=== PATIENT | female | born 1950 | race Caucasian/White ===

== ENCOUNTER → 2017-08-31 09:07 | Outpatient (POV) | payer MEDICARE, SELFPAY | PROVIDERS: Visit Provider Physician Assistant | DX: Z00.00 Encounter for general adult medical examination without abnormal findings (principal) ==

== ENCOUNTER → 2017-10-01 08:50 | Outpatient (CLI) | payer MEDICARE, SELFPAY ==
--- NOTE | 2017-10-01 09:32 | MM_ITS ---
MM Dig screening mamm BI w/CAD CAD Screening INDICATION: Screening for breast cancer ORDERING PHYSICIAN: Latoya Orr MD PATIENT AGE: 67 years COMPARISON: 08/14/2015, 06/06/2013, 04/04/2011 TECHNIQUE: Standard CC and MLO images were obtained. R2 CAD reviewed. FINDINGS: There is average to dense fibroglandular tissue which decreases the sensitivity of mammography. There is asymmetric density in the superior aspect of the right breast. This may be due to overlapping fibroglandular tissue. Spot compression view is suggested. If this persists then ultrasound may be needed. Asymmetric density also noted in the superior and lateral and retroareolar region of the left breast. No malignant appearing microcalcifications.. IMPRESSION: Scattered asymmetric densities which may be due to overlapping fibroglandular tissue. Spot compression views and possible ultrasound suggested BI-RADS Category: 0 Need Additional Imaging Evaluation RECOMMENDED FOLLOW-UP: IMM - IMMEDIATE FOLLOW-UP RECOMMENDED Suggest bilateral spot compression views and possibly ultrasound if nodular densities persist (A letter has been sent to the patient regarding results of the study.)
--- NOTE | 2017-10-01 09:48 | XR_ITS ---
XR DEXA axial skeleton HISTORY: ITS.REASON: Postmenopausal and Hypothyroidism ORDERING PHYSICIAN: Latoya Orr MD PATIENT AGE: 67 years COMPARISON: None FINDINGS: The BMD measured at the Right femoral neck is 0.752 g/cm squared with a T score of -2.1. This is considered Osteopenic according to the World Health Organization criteria. Fracture risk is Moderate. Treatment is advised. IMPRESSION: Osteopenia with moderate fracture risk. Treatment recommended. Recommend fall exam September 2019
== END ==
PROVIDERS: PCP Internal Medicine; Visit Provider Obstetrics & Gynecology
DX: Z12.31 Encounter for screening mammogram for malignant neoplasm of breast (principal); Z78.0 Asymptomatic menopausal state; Z13.820 Encounter for screening for osteoporosis; E03.9 Hypothyroidism, unspecified
CPT/HCPCS: 77067; 77080

== ENCOUNTER → 2017-10-22 12:54 | Outpatient (CLI) | payer MEDICARE, SELFPAY ==
--- NOTE | 2017-10-22 | US_ITS ---
MM Dig mamm BI DX w/CAD, US breast RT complete, US breast LT complete INDICATION: Follow-up abnormal mammogram ORDERING PHYSICIAN: Latoya Orr MD PATIENT AGE: 67 years COMPARISON: 10/01/2017, 08/14/2015 TECHNIQUE: Problem solving views performed along with bilateral breast ultrasound FINDINGS: Scattered areas of asymmetric density. Compress out as fibroglandular tissue. No malignant appearing mass or malignant appearing calcification Right breast ultrasound: No suspicious solid or cystic lesions. Left breast ultrasound: No suspicious cystic or solid lesions. IMPRESSION: Benign findings. Scattered areas of asymmetric density consistent with asymmetric fibroglandular tissue. BI-RADS Category: 2 Benign Finding(s) RECOMMENDED FOLLOW-UP: 1YR - 1 YEAR FOLLOW-UP (A letter has been sent to the patient regarding results of the study.)
== END ==
PROVIDERS: PCP Internal Medicine; Visit Provider Obstetrics & Gynecology
DX: R92.8 Other abnormal and inconclusive findings on diagnostic imaging of breast (principal)
CPT/HCPCS: 76641; 77066

== ENCOUNTER → 2017-10-28 10:35 | Outpatient (CLI) | payer MEDICARE, SELFPAY ==
--- NOTE | 2017-10-28 10:37 | US_ITS ---
US transvaginal HISTORY: ITS.REASON: T/V US- Abdominal Bloating ORDERING PHYSICIAN: Latoya Orr MD PATIENT AGE: 67 years Comparison: None FINDINGS: There has been prior hysterectomy. The vaginal cuff has an unremarkable appearance. No pelvic mass or abnormal fluid collection. The left ovary is 1.4 x 1.6 cm. The right ovary is 1.4 x 1.2 cm. No ovarian mass apparent. IMPRESSION: Prior hysterectomy otherwise negative pelvic ultrasound
== END ==
PROVIDERS: PCP Internal Medicine; Visit Provider Obstetrics & Gynecology
DX: R14.0 Abdominal distension (gaseous) (principal)
CPT/HCPCS: 76830

== ENCOUNTER → 2017-12-17 08:37 | Outpatient (POV) | payer MEDICARE, SELFPAY | PROVIDERS: Visit Provider Dermatology | DX: Z00.00 Encounter for general adult medical examination without abnormal findings (principal) ==

== ENCOUNTER → 2018-03-19 09:26 | Outpatient (CLI) | payer MEDICARE, SELFPAY | PROVIDERS: PCP Internal Medicine; Visit Provider Internal Medicine | DX: R06.09 Other forms of dyspnea (principal) | CPT/HCPCS: 93017 ==

== ENCOUNTER → 2018-04-26 17:08 | Outpatient (CLI) | payer MEDICARE, SELFPAY ==
[2018-04-26 19:53] LABS: Alanine Aminotransferase 45 U/L (12-78); Albumin Level 4.1 gm/dL (3.4-5.0); Alkaline Phosphatase 75 U/L (46-116); Bilirubin,Direct 0.1 mg/dL (0.0-0.2); Bilirubin,Indirect 0.2 mg/dL (0.0-0.9); Bilirubin,Total 0.3 mg/dL (0.2-1.0); Total Protein,Serum 7.2 gm/dL (6.4-8.2)
[2018-04-26 20:18] LABS: Aspartate Amino Transferase 24 U/L (15-37)
== END ==
PROVIDERS: Visit Provider Internal Medicine
DX: R74.8 Abnormal levels of other serum enzymes (principal)
CPT/HCPCS: 36415; 80076

== ENCOUNTER → 2018-08-10 09:00 | Outpatient (POV) | payer MEDICARE, SELFPAY | PROVIDERS: Visit Provider Dermatology | DX: Z00.00 Encounter for general adult medical examination without abnormal findings (principal) ==

== ENCOUNTER → 2019-04-05 08:33 | Outpatient (POV) | payer MEDICARE, SELFPAY | PROVIDERS: Visit Provider Dermatology | DX: Z00.00 Encounter for general adult medical examination without abnormal findings (principal) ==

== ENCOUNTER → 2019-07-12 14:04 | Outpatient (POV) | payer MEDICARE, SELFPAY | PROVIDERS: PCP Dermatology; Visit Provider Dermatology | DX: Z00.00 Encounter for general adult medical examination without abnormal findings (principal) ==

== ENCOUNTER → 2019-11-22 08:03 | Outpatient (POV) | payer MEDICARE, SELFPAY | PROVIDERS: Visit Provider Dermatology | DX: Z00.00 Encounter for general adult medical examination without abnormal findings (principal) ==

== ENCOUNTER → 2020-02-28 08:12 | Outpatient (CLI) | payer SELFPAY ==
--- NOTE | 2020-02-28 08:31 | CT_ITS ---
PROCEDURE: CT HEART W CALCIUM SCORE CLINICAL HISTORY: SCREENING COMPARISON: CT CHW CT CHEST W/ CONTRAST from 04/10/2017 TECHNIQUE: Axial images obtained with sagittal and coronal reformats. All CT scans at the facility use one or more dose reduction, viz: automated exposure control, ma/kV adjustment per patient size (including targeted exams where dose is matched to indication, i.e. head), or iterative reconstruction technique. FINDINGS: Coronary artery calcium score is 155. Moderate calcific plaque burden with high cardiovascular disease risk Incidental note made of a small hiatal hernia. Calcified granuloma is present in the left upper lobe. Noncalcified nodular opacity is present in the right middle lobe 6 mm. There is an additional 4 mm noncalcified nodule in the right lower lobe. IMPRESSION: Moderate calcific plaque burden with high cardiovascular disease risk At least 2 noncalcified nodules on the right 1 in the middle lobe and 1 in the lower lobe. These are not significantly changed from prior chest CT of 04/10/2017. Dictated by: Sav Arzate MD 02/28/2020 12:58 Sav Arzate MD in [place] 02/28/2020 12:58
== END ==
PROVIDERS: PCP Internal Medicine; Visit Provider Internal Medicine Cardiovascular Disease
DX: Z13.6 Encounter for screening for cardiovascular disorders (principal)
CPT/HCPCS: 75571

== ENCOUNTER → 2020-02-28 08:17 | Outpatient (CLI) | payer MEDICARE, SELFPAY ==
--- NOTE | 2020-02-28 08:29 | CA_ITS ---
APPROVED REPORT Technical Services Assistant: THIAGO Laterality: Bilateral Indications: betty Doppler Spectral Velocity Analysis dICA (R) 99.20/40.30 cm/s dICA (L) 104.20/40.20 cm/s John (R) 94.40/37.50 cm/s John (L) 104.20/36.80 cm/s pICA (R) 86.60/36.60 cm/s pICA (L) 98.40/29.10 cm/s dCCA (R) 93.40/29.70 cm/s dCCA (L) 104.00/31.90 cm/s pCCA (R) 127.30/29.70 cm/s pCCA (L) 81.10/17.90 cm/s Vert (R) 44.40/11.10 cm/s Vert (L) 44.30/15.90 cm/s ICA/CCA 1.10 ICA/CCA 1.00 Findings Duplex evaluation demonstrates stenosis of the right proximal internal carotid artery <20% with PSV <140 cm/sec, EDV <100 cm/sec, and IC/CC Ratio <4.0.Duplex evaluation demonstrates stenosis of the left proximal internal carotid artery <20% with PSV <140 cm/sec, EDV <100 cm/sec, and IC/CC Ratio <4.0.Antegrade flow seen bilateral vertebral arteries. Conclusion Duplex evaluation demonstrates stenosis of the right proximal internal carotid artery <20% with PSV <140 cm/sec, EDV <100 cm/sec, and IC/CC Ratio <4.0.Duplex evaluation demonstrates stenosis of the left proximal internal carotid artery <20% with PSV <140 cm/sec, EDV <100 cm/sec, and IC/CC Ratio <4.0.Antegrade flow seen bilateral vertebral arteries. Electronically signed by : Sav Arzate MD 02/28/2020 17:52:05
--- NOTE | 2020-02-28 08:32 | US_ITS ---
PROCEDURE: US ABD. AORTA SCREENING CLINICAL INDICATION: AAA,DYSPNEA COMPARISON: No exams were available for comparison FINDINGS: No evidence of aortic aneurysm. No significant plaque. Proximal common iliacs are unremarkable. IMPRESSION: No evidence of aortic aneurysm. Dictated by: Sav Arzate MD 02/28/2020 12:50 Sav Arzate MD in [place] 02/28/2020 12:50
== END ==
PROVIDERS: PCP Internal Medicine; Visit Provider Internal Medicine Cardiovascular Disease
DX: R06.00 Dyspnea, unspecified (principal); R42 Dizziness and giddiness; I65.23 Occlusion and stenosis of bilateral carotid arteries; I48.0 Paroxysmal atrial fibrillation; I10 Essential (primary) hypertension; Z82.49 Family history of ischemic heart disease and other diseases of the circulatory system; Z86.39 Personal history of other endocrine, nutritional and metabolic disease; Z87.891 Personal history of nicotine dependence; Z13.6 Encounter for screening for cardiovascular disorders
CPT/HCPCS: 76705; 93880

== ENCOUNTER → 2021-04-16 10:55 | Outpatient (POV) | payer MEDICARE, SELFPAY | PROVIDERS: Visit Provider Dermatology | DX: Z00.00 Encounter for general adult medical examination without abnormal findings (principal) ==

== ENCOUNTER → 2021-07-30 13:24 | Outpatient (CLI) | payer MEDICARE, SELFPAY ==
[2021-07-30 17:13] LABS: 25-OH Vitamin D, Total 65.5 ng/mL (30-100)
[2021-07-30 18:13] LABS: Alanine Aminotransferase 36 U/L (12-78); Albumin Level 4.5 g/dl (3.5-5.0); Alkaline Phosphatase 69 U/L (38-126); Anion Gap 12.6 mEq/L (5-15); Aspartate Amino Transferase 35 U/L (14-36); Bilirubin,Total 0.4 mg/dl (0.2-1.3); Blood Urea Nitrogen 9 mg/dl (7-17); Calcium 9.3 mg/dl (8.4-10.2); Carbon Dioxide 23 mmol/L (22.0-30.0); Chloride 103 mmol/L (98-107); Chol/HDL Ratio 2.7 (1-3.5); Cholesterol 159 mg/dl (140-200); Estimated Glomerular Filt Rate 98 ml/min (>60); GFR (African American) 119 ML/MIN (>60); Globulin 2.2 g/dL (1.3-3.2); Glucose 89 mg/dl (74-100); HDL Cholesterol 59 mg/dl (40-60); Potassium 4.6 mmoL/L (3.5-5.1); Sodium 134 mmol/L (136-145); Total Protein,Serum 6.7 g/dl (6.3-8.2); Triglycerides 83 mg/dl (30-150); VLDL Cholesterol 17 mg/dL (0-40)
[2021-07-30 18:24] LABS: Direct LDL Cholesterol 78.17 mg/dL (100-129)
== END ==
PROVIDERS: Visit Provider Internal Medicine
DX: I10 Essential (primary) hypertension (principal); I47.1 Supraventricular tachycardia; E78.5 Hyperlipidemia, unspecified; N95.1 Menopausal and female climacteric states; M85.89 Other specified disorders of bone density and structure, multiple sites
CPT/HCPCS: 80053; 80061; 82306

== ENCOUNTER → 2021-08-21 13:28 | Outpatient (CLI) | payer MEDICARE, SELFPAY ==
[2021-08-21 16:10] LABS: Anion Gap 11.6 mEq/L (5-15); Blood Urea Nitrogen 8 mg/dl (7-17); Calcium 9.5 mg/dl (8.4-10.2); Carbon Dioxide 31 mmol/L (22.0-30.0); Chloride 100 mmol/L (98-107); Estimated Glomerular Filt Rate 98 ml/min (>60); GFR (African American) 119 ML/MIN (>60); Glucose 84 mg/dl (74-100); Potassium 4.6 mmoL/L (3.5-5.1); Sodium 138 mmol/L (136-145)
== END ==
PROVIDERS: Visit Provider Internal Medicine
DX: I10 Essential (primary) hypertension (principal); I47.1 Supraventricular tachycardia; E87.1 Hypo-osmolality and hyponatremia
CPT/HCPCS: 80048

== ENCOUNTER → 2021-11-05 08:07 | Outpatient (POV) | payer MEDICARE, SELFPAY | PROVIDERS: Visit Provider Dermatology | DX: Z00.00 Encounter for general adult medical examination without abnormal findings (principal) ==

== ENCOUNTER → 2021-12-30 13:27 | Outpatient (CLI) | payer MEDICARE, SELFPAY ==
[2021-12-30 15:59] LABS: Basophils % 0.9 % (0.1-2.0); Eosinophils # 0.1 K/mm3 (0.0-0.4); Eosinophils % 2.8 % (0.1-12.0); Hematocrit 44.8 % (37.0-47.0); Hemoglobin 14.4 g/dL (12.2-16.2); Lymphocytes # 1.5 K/mm3 (0.7-4.5); Lymphocytes % 34.7 % (10-50); Mean Corpuscular HGB Conc 32.1 g/dL (31.8-35.4); Mean Corpuscular Hemoglobin 30.4 pg (27.0-31.2); Mean Corpuscular Volume 94.7 fl (81-99); Mean Platelet Volume 10.7 fl (7.4-10.4); Monocytes # 0.3 K/mm3 (0.1-1.0); Monocytes % 7.9 % (1.7-9.3); Neutrophils # 2.3 K/mm3 (1.8-7.8); Neutrophils % 53.7 % (37.0-80.0); Platelet Count 312 K/mm3 (142-424); Red Blood Count 4.73 M/mm3 (4.20-5.40); White Blood Count 4.3 K/mm3 (4.8-10.8)
[2021-12-30 18:23] LABS: Alanine Aminotransferase 21 U/L (12-78); Albumin Level 4.2 g/dl (3.5-5.0); Albumin/Globulin Ratio 1.8 (1.1-1.8); Alkaline Phosphatase 78 U/L (38-126); Anion Gap 13.9 mEq/L (5-15); Aspartate Amino Transferase 27 U/L (14-36); Bilirubin,Total 0.3 mg/dl (0.2-1.3); Blood Urea Nitrogen 11 mg/dl (7-17); Calcium 9.1 mg/dl (8.4-10.2); Carbon Dioxide 24 mmol/L (22.0-30.0); Chloride 101 mmol/L (98-107); Chol/HDL Ratio 3.1 (1-3.5); Cholesterol 149 mg/dl (140-200); Estimated Glomerular Filt Rate 98 ml/min (>60); GFR (African American) 119 ML/MIN (>60); Globulin 2.3 g/dL (1.3-3.2); Glucose 79 mg/dl (74-100); HDL Cholesterol 48 mg/dl (40-60); Potassium 4.9 mmoL/L (3.5-5.1); Sodium 134 mmol/L (136-145); Total Protein,Serum 6.5 g/dl (6.3-8.2); Triglycerides 79 mg/dl (30-150); VLDL Cholesterol 16 mg/dL (0-40)
[2021-12-30 18:52] LABS: Thyroid Stimulating Hormone 0.98 uIU/mL (0.465-4.68)
[2022-01-01 11:20] LABS: Direct LDL Cholesterol 81 mg/dL (100-129)
== END ==
PROVIDERS: PCP Internal Medicine; Visit Provider Internal Medicine
DX: E03.9 Hypothyroidism, unspecified (principal); I10 Essential (primary) hypertension; E78.5 Hyperlipidemia, unspecified; K59.00 Constipation, unspecified; I65.23 Occlusion and stenosis of bilateral carotid arteries
CPT/HCPCS: 80053; 80061; 84443; 85025

== ENCOUNTER → 2022-01-29 12:32 | Outpatient (CLI) | payer MEDICARE, SELFPAY ==
[2022-01-29 13:24] LABS: Sodium 138 mmol/L (136-145)
== END ==
PROVIDERS: PCP Internal Medicine; Visit Provider Internal Medicine
DX: E87.1 Hypo-osmolality and hyponatremia (principal)
CPT/HCPCS: 84295

== ENCOUNTER → 2022-02-04 20:18 | Outpatient (CLI) | payer MEDICARE, SELFPAY | PROVIDERS: PCP Internal Medicine; Visit Provider Nurse Practitioner Family | DX: G47.33 Obstructive sleep apnea (adult) (pediatric) (principal); I10 Essential (primary) hypertension; I48.91 Unspecified atrial fibrillation | CPT/HCPCS: 95810 ==

== ENCOUNTER → 2022-02-27 12:50 | Outpatient (CLI) | payer MEDICARE, SELFPAY ==
--- NOTE | 2022-02-27 12:51 | CT_ITS ---
FINAL REPORT CLINICAL HISTORY: lung cancer screening, 71-year-old former smoker, quit 9 years ago, 45 pack-year smoking history. COMPARISON: May 23, 2016 FINDINGS: Low-Dose Chest CT Axial images were obtained from the lung apex to the mid abdomen by computed tomography. Low-dose protocol was utilized. CTDI vol (mGy): 2.90 DLP (mGy-cm): 106.29 There is no axillary adenopathy. There is no hilar or mediastinal adenopathy. The heart is proper size. There is no pericardial or pleural effusion. Lung window images demonstrate a calcified granuloma in the anterior left upper lobe. There is a 6 mm nodule in the right middle lobe on image 48 of series 3. There are 3 nodules in the periphery of the right lower lobe measuring up to 4 mm seen on images 50, 53 and 60. There are small nodules in the posterior aspect of the left lower lobe measuring up to 4 mm seen on image 33 of series 3. These nodules are all stable since 2017 and can be considered benign. Limited images of the upper abdomen are unremarkable. IMPRESSION: Stable pulmonary nodules as above. Lung RADS category 2. Recommend 12 month follow-up low-dose chest CT. Reviewed, Interpreted and Dictated by Familia Soliz MD Transcribed by Desiree Harris Authenticated and [facility]
--- NOTE | 2022-02-27 12:51 | MM_ITS ---
PROCEDURE INFORMATION: Exam: MG Bilateral Screening 3D Mammography Exam date and time: 02/27/2022 1:19 PM Age: 71 years old Clinical indication: Screening examination TECHNIQUE: Imaging protocol: Bilateral Screening tomosynthesis and 2D mammography including computer-aided detection (CAD) when performed. COMPARISON: 1. MG DXBI MM Dig mamm BI DX w/CAD 10/22/2017 1:16 PM 2. MG SCBI MM Dig screening mamm BI w/CAD 10/01/2017 9:36 AM FINDINGS: MAMMOGRAPHY: Breast composition: The breasts are heterogeneously dense, which may obscure small masses. Mass: None. Architectural distortion: None. Calcifications: No suspicious calcifications. Asymmetric density: None. Skin thickening: None. Axillary adenopathy: None. IMPRESSION: No mammographic evidence of malignancy. Annual screening is recommended unless otherwise clinically indicated. ASSESSMENT: BI-RADS Category 1: Negative
== END ==
PROVIDERS: PCP Family Medicine; Visit Provider Family Medicine
DX: Z12.31 Encounter for screening mammogram for malignant neoplasm of breast (principal); Z87.891 Personal history of nicotine dependence; Z12.2 Encounter for screening for malignant neoplasm of respiratory organs
CPT/HCPCS: 71271; 77063; 77067

== ENCOUNTER → 2022-03-18 14:25 | Outpatient (CLI) | payer MEDICARE, SELFPAY ==
[2022-03-18 12:32] LABS: Thyroid Stimulating Hormone 1.45 uIU/mL (0.465-4.68)
[2022-03-18 14:29] LABS: Basophils # 0.1 K/mm3 (0-0.2); Basophils % 1.6 % (0.1-2.0); Eosinophils # 0.1 K/mm3 (0.0-0.4); Eosinophils % 1.8 % (0.1-12.0); Hematocrit 44.4 % (37.0-47.0); Hemoglobin 14.6 g/dL (12.2-16.2); Lymphocytes # 1.5 K/mm3 (0.7-4.5); Lymphocytes % 31.3 % (10-50); Mean Corpuscular HGB Conc 32.9 g/dL (31.8-35.4); Mean Corpuscular Hemoglobin 30.8 pg (27.0-31.2); Mean Corpuscular Volume 93.7 fl (81-99); Mean Platelet Volume 10.2 fl (7.4-10.4); Monocytes # 0.3 K/mm3 (0.1-1.0); Monocytes % 6.7 % (1.7-9.3); Neutrophils # 2.8 K/mm3 (1.8-7.8); Neutrophils % 58.5 % (37.0-80.0); Platelet Count 322 K/mm3 (142-424); Red Blood Count 4.74 M/mm3 (4.20-5.40); White Blood Count 4.9 K/mm3 (4.8-10.8)
[2022-03-18 15:07] LABS: Alanine Aminotransferase 19 U/L (12-78); Albumin Level 4.6 g/dl (3.5-5.0); Alkaline Phosphatase 96 U/L (38-126); Anion Gap 17.9 mEq/L (5-15); Aspartate Amino Transferase 27 U/L (14-36); Bilirubin,Total 0.2 mg/dl (0.2-1.3); Blood Urea Nitrogen 12 mg/dl (7-17); Calcium 10.1 mg/dl (8.4-10.2); Carbon Dioxide 27 mmol/L (22.0-30.0); Chloride 101 mmol/L (98-107); Chol/HDL Ratio 2.9 (1-3.5); Cholesterol 164 mg/dl (140-200); Estimated Glomerular Filt Rate 98 ml/min (>60); GFR (African American) 119 ML/MIN (>60); Globulin 2.3 g/dL (1.3-3.2); Glucose 101 mg/dl (74-100); HDL Cholesterol 56 mg/dl (40-60); Magnesium 1.9 mg/dl (1.6-2.3); Potassium 4.9 mmoL/L (3.5-5.1); Sodium 141 mmol/L (136-145); Total Protein,Serum 6.9 g/dl (6.3-8.2); Triglycerides 60 mg/dl (30-150); VLDL Cholesterol 12 mg/dL (0-40)
[2022-03-18 15:17] LABS: Direct LDL Cholesterol 85.05 mg/dL (100-129)
[2022-03-18 15:24] LABS: 25-OH Vitamin D, Total 45.4 ng/mL (30-100)
[2022-03-18 16:13] LABS: Vitamin B12 864 pg/mL (239-931)
[2022-03-18 16:36] LABS: Iron 65 ug/dL (37-170)
[2022-03-18 16:45] LABS: Total Iron Binding Capacity 336 ug/dL (265-497)
== END ==
PROVIDERS: PCP Family Medicine; Visit Provider Family Medicine
DX: E03.9 Hypothyroidism, unspecified (principal); E78.5 Hyperlipidemia, unspecified; I10 Essential (primary) hypertension; R91.8 Other nonspecific abnormal finding of lung field; N95.1 Menopausal and female climacteric states; Z51.81 Encounter for therapeutic drug level monitoring; Z68.20 Body mass index [BMI] 20.0-20.9, adult; Z79.899 Other long term (current) drug therapy
CPT/HCPCS: 80053; 80061; 82306; 82607; 82746; 83540; 83550; 83735; 84443; 85025

== ENCOUNTER → 2022-05-21 14:30 | Outpatient (CLI) | payer MEDICARE, SELFPAY ==
[2022-05-21 15:24] LABS: Adenovirus,PCR Not Detected (NotDetected); Bordetella Pertussis Not Detected (NotDetected); Chlamydophila Pneumoniae, PCR Not Detected (NotDetected); Coronavirus 229E Not Detected (NotDetected); Coronavirus NL63 Not Detected (NotDetected); Coronavirus OC43 Not Detected (NotDetected); Coronovirus HKU1,PCR Not Detected (NotDetected); Human Metapneumovirus Not Detected (NotDetected); Influenza A, PCR Not Detected (NotDetected); Influenza AH1, 2009 Not Detected (NotDetected); Influenza AH1, PCR Not Detected (NotDetected); Influenza AH3,PCR Not Detected (NotDetected); Influenza B, PCR Not Detected (NotDetected); Mycoplasma Pneumoniae, PCR Not Detected (NotDetected); Parainfluenza 1, PCR Not Detected (NotDetected); Parainfluenza 2, PCR Not Detected (NotDetected); Parainfluenza 3, PCR Not Detected (NotDetected); Parainfluenza 4, PCR Not Detected (NotDetected); Respiratory Syncytial Virus Not Detected (NotDetected); Rhinovirus/Enterovirus Not Detected (NotDetected)
[2022-05-22 06:50] LABS: Coronavirus 19, PCR Detected (NotDetected)
== END ==
PROVIDERS: PCP Family Medicine; Visit Provider Family Medicine
DX: U07.1 COVID-19 (principal)
CPT/HCPCS: 87581; 87632; 87798; C9803; U0003; U0005

== ENCOUNTER → 2022-07-15 09:15 | Outpatient (POV) | payer MEDICARE, SELFPAY | PROVIDERS: Visit Provider Dermatology | DX: Z00.00 Encounter for general adult medical examination without abnormal findings (principal) ==

== ENCOUNTER → 2022-09-03 11:22 | Outpatient (CLI) | payer MEDICARE, SELFPAY ==
[2022-09-03 12:05] LABS: Basophils # 0.1 K/mm3 (0-0.2); Basophils % 1.1 % (0.1-2.0); Eosinophils # 0.1 K/mm3 (0.0-0.4); Eosinophils % 1.5 % (0.1-12.0); Hematocrit 44.4 % (37.0-47.0); Hemoglobin 14.6 g/dL (12.2-16.2); Lymphocytes # 1.3 K/mm3 (0.7-4.5); Lymphocytes % 25.7 % (10-50); Mean Corpuscular HGB Conc 32.8 g/dL (31.8-35.4); Mean Corpuscular Hemoglobin 29.1 pg (27.0-31.2); Mean Corpuscular Volume 88.8 fl (81-99); Monocytes # 0.3 K/mm3 (0.1-1.0); Monocytes % 5.8 % (1.7-9.3); Neutrophils # 3.3 K/mm3 (1.8-7.8); Platelet Count 271 K/mm3 (142-424); Red Cell Distribution Width 13.7 % (11.5-17.5)
[2022-09-03 12:41] LABS: Chloride 102 mmol/L (98-107); Potassium 4.2 mmoL/L (3.5-5.1); Sodium 135 mmol/L (136-145)
[2022-09-03 12:44] LABS: Alanine Aminotransferase 27 U/L (12-78); Albumin Level 4.3 g/dl (3.5-5.0); Albumin/Globulin Ratio 1.9 (1.1-1.8); Alkaline Phosphatase 83 U/L (38-126); Anion Gap 9.2 mEq/L (5-15); Aspartate Amino Transferase 30 U/L (14-36); Bilirubin,Total 0.5 mg/dl (0.2-1.3); Blood Urea Nitrogen 15 mg/dl (7-17); Calcium 9.1 mg/dl (8.4-10.2); Carbon Dioxide 28 mmol/L (22.0-30.0); Estimated Glomerular Filt Rate 98 ml/min (>60); GFR (African American) 118 ML/MIN (>60); Globulin 2.3 g/dL (1.3-3.2); Glucose 90 mg/dl (74-100); Total Protein,Serum 6.6 g/dl (6.3-8.2)
[2022-09-03 13:12] LABS: Thyroid Stimulating Hormone 1.19 uIU/mL (0.465-4.68)
[2022-09-03 13:55] LABS: Vitamin B12 738 pg/mL (239-931)
== END ==
PROVIDERS: PCP Family Medicine; Visit Provider Family Medicine
DX: E03.9 Hypothyroidism, unspecified (principal); E07.9 Disorder of thyroid, unspecified; I10 Essential (primary) hypertension
CPT/HCPCS: 36415; 80053; 82607; 84443; 85025

== ENCOUNTER → 2022-10-17 07:55 | Outpatient (CLI) | payer MEDICARE, SELFPAY ==
[2022-10-17 09:30] LABS: Chol/HDL Ratio 2.3 (1-3.5); Cholesterol 148 mg/dl (140-200); HDL Cholesterol 64 mg/dl (40-60); Triglycerides 70 mg/dl (30-150); VLDL Cholesterol 14 mg/dL (0-40)
[2022-10-17 09:42] LABS: Direct LDL Cholesterol 71.86 mg/dL (100-129)
== END ==
PROVIDERS: PCP Nurse Practitioner Family; Visit Provider Nurse Practitioner Family
DX: E78.5 Hyperlipidemia, unspecified (principal)
CPT/HCPCS: 36415; 80061

== ENCOUNTER → 2023-01-06 09:49 | Outpatient (POV) | payer MEDICARE, SELFPAY | PROVIDERS: Visit Provider Dermatology | DX: Z00.00 Encounter for general adult medical examination without abnormal findings (principal) ==

== ENCOUNTER → 2023-04-14 09:11 | Outpatient (CLI) | payer MEDICARE, SELFPAY ==
--- NOTE | 2023-04-14 09:12 | CT_ITS ---
FINAL REPORT CLINICAL HISTORY: . FORMER SMOKER QUIT 14 YEARS AGO, 1/2PPD X40 YEARS COMPARISON: 02/27/2022 FINDINGS: CT CHEST LOW DOSE SCREENING HISTORY: Screening exam for lung cancer. 72-year-old female, former smoker, quit 14 years ago, 20 pack year smoking history DOSE: CTDIvol: 2.9 mGy, DLP: 110.46 mGy*cm COMPARISON: 02/27/2022. TECHNIQUE: Axial CT without IV contrast administration using low dose protocol FINDINGS: No acute lung disease is present . There are scattered nodules in the lung nuno bilaterally, largest in the right lower lobe with the largest in the right middle lobe best seen in image #46. This nodule is stable when compared to the prior CT. The remainder of the nodules seem stable as well. No pleural or pericardial effusion is seen . No adenopathy or mass lesion is present . 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 IMPRESSION: Stable bilateral nodules, largest in the right lower lobe, when compared to the prior CT of February 2022. No new nodules or masses are identified. LUNG RADS CATEGORY 2 RECOMMENDATION: 12 month LDCT follow up Reviewed, Interpreted and Dictated by Sherri Pickering MD Transcribed by Augusta Dowell Authenticated and [facility]
--- NOTE | 2023-04-14 09:12 | XR_ITS ---
FINAL REPORT CLINICAL HISTORY: . post menopausal screening FINDINGS: Using L1-4, the bone mineral density of the spine is 0.931 g/cm2, corresponding to T-score of -1.1. Using the left hip, the bone mineral density of the femoral neck is 0.633 g/cm2, corresponding to a T-score of -1.9. FRAX data: 11% risk for major osteoporotic fracture. Using the right hip, the bone mineral density of the femoral neck is 0.607 g/cm2, corresponding to a T-score of -2.2. FRAX data: 12% risk for major osteoporotic fracture. IMPRESSION: Diminished bone mineral density of the lumbar spine and bilateral hips consistent with osteopenia. Reviewed, Interpreted and Dictated by Sherri Pickering MD Transcribed by Young Jung Authenticated and [facility]
== END ==
PROVIDERS: PCP Internal Medicine; Visit Provider Internal Medicine
DX: Z87.891 Personal history of nicotine dependence (principal); R93.7 Abnormal findings on diagnostic imaging of other parts of musculoskeletal system; Z12.2 Encounter for screening for malignant neoplasm of respiratory organs; Z78.0 Asymptomatic menopausal state
CPT/HCPCS: 71271; 77080

== ENCOUNTER 2023-09-04 12:16 | Outpatient (CLI) | payer MEDICARE, SELFPAY ==
[2023-09-04 12:34] LABS: Basophils # 0.1 K/mm3 (0-0.2); Basophils % 1.2 % (0.1-2.0); Eosinophils # 0.1 K/mm3 (0.0-0.4); Eosinophils % 2.6 % (0.1-12.0); Hematocrit 45.4 % (37.0-47.0); Hemoglobin 15.3 g/dL (12.2-16.2); Lymphocytes # 1.3 K/mm3 (0.7-4.5); Lymphocytes % 27.2 % (10-50); Mean Corpuscular HGB Conc 33.7 g/dL (31.8-35.4); Mean Corpuscular Hemoglobin 31.2 pg (27.0-31.2); Mean Corpuscular Volume 92.7 fl (81-99); Mean Platelet Volume 10.4 fl (7.4-10.4); Monocytes # 0.3 K/mm3 (0.1-1.0); Monocytes % 6.1 % (1.7-9.3); Neutrophils # 2.9 K/mm3 (1.8-7.8); Neutrophils % 62.9 % (37.0-80.0); Platelet Count 266 K/mm3 (142-424); Red Cell Distribution Width 13.6 % (11.5-17.5); White Blood Count 4.6 K/mm3 (4.8-10.8)
[2023-09-04 13:04] LABS: Alanine Aminotransferase 22 U/L (12-78); Albumin Level 4.5 g/dl (3.5-5.0); Alkaline Phosphatase 82 U/L (38-126); Anion Gap 10.8 mEq/L (5-15); Aspartate Amino Transferase 29 U/L (14-36); Bilirubin,Total 0.5 mg/dl (0.2-1.3); Blood Urea Nitrogen 8 mg/dl (7-17); Calcium 9.6 mg/dl (8.4-10.2); Carbon Dioxide 29 mmol/L (22.0-30.0); Chloride 105 mmol/L (98-107); Chol/HDL Ratio 3.7 (1-3.5); Cholesterol 167 mg/dl (140-200); Estimated Glomerular Filt Rate 82 ml/min (>60); GFR (African American) 99 ML/MIN (>60); Globulin 2.2 g/dL (1.3-3.2); Glucose 94 mg/dl (74-100); HDL Cholesterol 45 mg/dl (40-60); Potassium 4.8 mmoL/L (3.5-5.1); Sodium 140 mmol/L (136-145); Total Protein,Serum 6.7 g/dl (6.3-8.2); Triglycerides 53 mg/dl (30-150); VLDL Cholesterol 11 mg/dL (0-40)
[2023-09-04 13:15] LABS: Direct LDL Cholesterol 86.93 mg/dL (100-129)
[2023-09-04 13:21] LABS: Free T4 (Free Thyroxine) 1.37 ng/dl (0.78-2.19)
[2023-09-04 13:22] LABS: 25-OH Vitamin D, Total 42.1 ng/mL (30-100)
[2023-09-04 13:34] LABS: Thyroid Stimulating Hormone 0.65 uIU/mL (0.465-4.68)
[2023-09-04 14:53] LABS: Hemoglobin A1C 5.6 % (4.0-6.0)
== END 2023-09-04 23:59 | disposition home or self-care (01) ==
LOC: LAB.DROPOF 12:18
PROVIDERS: PCP Internal Medicine; Visit Provider Internal Medicine
DX: E55.9 Vitamin D deficiency, unspecified (principal); E03.9 Hypothyroidism, unspecified; E78.5 Hyperlipidemia, unspecified; R73.9 Hyperglycemia, unspecified; Z68.20 Body mass index [BMI] 20.0-20.9, adult; Z13.21 Encounter for screening for nutritional disorder; Z13.29 Encounter for screening for other suspected endocrine disorder; Z13.220 Encounter for screening for lipoid disorders; Z13.1 Encounter for screening for diabetes mellitus
CPT/HCPCS: 80053; 80061; 82306; 83036; 84439; 84443; 85025

== ENCOUNTER 2023-11-18 09:50 | Outpatient (CLI) | payer MEDICARE, SELFPAY ==
--- NOTE | 2023-11-18 09:54 | XR_ITS ---
FINAL REPORT CLINICAL HISTORY: Foot Pain COMPARISON: None FINDINGS: RIGHT FOOT 3 views of the right foot were obtained. There is no acute fracture or dislocation. Mild hallux valgus deformity is noted. There is mild degenerative change. Small calcaneal spurs are noted. The soft tissues are unremarkable. IMPRESSION: Mild degenerative/chronic changes without acute bony abnormality. Small calcaneal spurs. Reviewed, Interpreted and Dictated by Tien Jaramillo III, MD Transcribed by Kami Johnson Authenticated and [facility]
--- NOTE | 2023-11-18 09:54 | XR_ITS ---
FINAL REPORT CLINICAL HISTORY: Foot Pain COMPARISON: None FINDINGS: LEFT FOOT Three views of the left foot demonstrate no acute fracture or dislocation. Mild hallux valgus deformity is noted. There is mild degenerative change. Small calcaneal spurs are noted. The soft tissues are unremarkable. IMPRESSION: Mild degenerative/chronic changes without acute bony abnormality. Small calcaneal spurs. Reviewed, Interpreted and Dictated by Tien Jaramillo III, MD Transcribed by Kami Johnson Authenticated and . [facility]
== END 2023-11-18 23:59 | disposition home or self-care (01) ==
LOC: RAD 09:51
PROVIDERS: PCP Internal Medicine; Visit Provider Podiatrist
DX: M79.671 Pain in right foot (principal); M79.672 Pain in left foot
CPT/HCPCS: 73630

== ENCOUNTER 2024-03-22 16:51 | Outpatient (CLI) | payer MEDICARE, SELFPAY ==
[2024-03-22 17:37] LABS: HIV (1&2) Antibody Rapid NONREACTIVE (NONREACTIVE)
[2024-03-23 09:39] LABS: HCV Ab Non Reactive (Non Reactive)
== END 2024-03-22 23:59 | disposition home or self-care (01) ==
LOC: LAB.DROPOF 16:52
PROVIDERS: PCP Internal Medicine; Visit Provider Internal Medicine
DX: Z11.59 Encounter for screening for other viral diseases (principal); Z11.4 Encounter for screening for human immunodeficiency virus [HIV]
CPT/HCPCS: 86803; 87389

== ENCOUNTER 2024-05-27 10:52 | Outpatient (CLI) | payer MEDICARE, SELFPAY ==
--- NOTE | 2024-05-27 10:54 | XR_ITS ---
FINAL REPORT TECHNIQUE: Chest PA & Lateral CLINICAL HISTORY: Lower Resp Infection x 8 days COMPARISON: None FINDINGS: 2 views of the chest were performed. The heart size is normal. The mediastinum is within normal limits. There is no acute cardiopulmonary process. There are no pleural effusions. There is no pneumothorax. The bony thorax appears intact. There is mild thoracic scoliosis convex to the left measuring 15 degrees. IMPRESSION: No acute cardiopulmonary process. Reviewed, Interpreted and Dictated by Familia Soliz MD Transcribed by Thelma Cochran Authenticated and [facility]
[2024-05-27 14:29] LABS: Coronavirus 19, PCR Not Detected (NotDetected); Human Rhinovirus Not Detected (NotDetected); Influenza A, PCR Not Detected (NotDetected); Influenza B, PCR Not Detected (NotDetected); Respiratory Syncytial Virus Not Detected (NotDetected)
== END 2024-05-27 23:59 | disposition home or self-care (01) ==
LOC: RAD 10:53
PROVIDERS: PCP Internal Medicine; Visit Provider Internal Medicine
DX: J06.9 Acute upper respiratory infection, unspecified (principal)
CPT/HCPCS: 71046; 87631

== ENCOUNTER 2024-08-30 11:49 | Outpatient (CLI) | payer MEDICARE, SELFPAY ==
--- OUTSIDE RECORDS SUMMARY | 2024-08-30 11:51 | XMS_ITS ---
Author Organization Unknown TREATMENT PLAN [facility] Start Date Provider Encounter for Check-up [id number] [facility]
[2024-08-30 12:08] LABS: Basophils # 0.1 K/mm3 (0-0.2); Basophils % 1.5 % (0.1-2.0); Eosinophils # 0.1 K/mm3 (0.0-0.4); Eosinophils % 3.2 % (0.1-12.0); Hematocrit 43.1 % (37.0-47.0); Hemoglobin 15.2 g/dL (12.2-16.2); Lymphocytes # 1.3 K/mm3 (0.7-4.5); Mean Corpuscular HGB Conc 35.3 g/dL (31.8-35.4); Mean Corpuscular Hemoglobin 30.6 pg (27.0-31.2); Mean Corpuscular Volume 86.9 fl (81-99); Mean Platelet Volume 11.4 fl (7.4-10.4); Monocytes # 0.4 K/mm3 (0.1-1.0); Monocytes % 10.2 % (1.7-9.3); Neutrophils # 2.2 K/mm3 (1.8-7.8); Neutrophils % 53.9 % (37.0-80.0); Nucleated Red Blood Cells # 0 10^3/uL; Nucleated Red Blood Cells % 0 %; Platelet Count 274 K/mm3 (142-424); Red Blood Count 4.96 M/mm3 (4.20-5.40); Red Cell Distribution Width 12.1 % (11.5-17.5); Red Cell Distribution Width-SD 38.5 fL
[2024-08-30 12:30] LABS: Alanine Aminotransferase 26 U/L (12-78); Albumin Level 4.4 g/dl (3.5-5.0); Albumin/Globulin Ratio 1.6 (1.1-1.8); Alkaline Phosphatase 78 U/L (38-126); Aspartate Amino Transferase 29 U/L (14-36); Bilirubin,Total 0.8 mg/dl (0.2-1.3); Blood Urea Nitrogen 8 mg/dl (7-17); Calcium 9.6 mg/dl (8.4-10.2); Carbon Dioxide 29 mmol/L (22.0-30.0); Chloride 98 mmol/L (98-107); Chol/HDL Ratio 2.9 (1-3.5); Cholesterol 143 mg/dl (140-200); Estimated Glomerular Filt Rate 70 ml/min (>60); GFR (African American) 84 ML/MIN (>60); Globulin 2.7 g/dL (1.3-3.2); Glucose 105 mg/dl (74-100); HDL Cholesterol 50 mg/dl (40-60); Sodium 137 mmol/L (136-145); Total Protein,Serum 7.1 g/dl (6.3-8.2); Triglycerides 74 mg/dl (30-150); VLDL Cholesterol 15 mg/dL (0-40)
[2024-08-30 12:38] LABS: Hemoglobin A1C 5.4 % (4.0-6.0)
[2024-08-30 12:41] LABS: Direct LDL Cholesterol 64.93 mg/dL (100-129)
[2024-08-30 13:00] LABS: Thyroid Stimulating Hormone 0.66 uIU/mL (0.465-4.68)
== END 2024-08-30 23:59 | disposition home or self-care (01) ==
LOC: LAB 11:50
PROVIDERS: PCP Internal Medicine; Visit Provider Internal Medicine
DX: E78.5 Hyperlipidemia, unspecified (principal); I10 Essential (primary) hypertension; E03.9 Hypothyroidism, unspecified; Z13.1 Encounter for screening for diabetes mellitus; Z87.891 Personal history of nicotine dependence
CPT/HCPCS: 36415; 80053; 80061; 83036; 84443; 85025

== ENCOUNTER 2024-09-08 09:02 | Outpatient (CLI) | payer MEDICARE, SELFPAY ==
--- NOTE | 2024-09-08 09:15 | CA_ITS ---
FINAL REPORT TECHNIQUE: Mixon scale, color and spectral doppler images of the bilateral carotid arteries were obtained. CLINICAL HISTORY: HLD, ex smoker quit 14 years ago, family history of JIE. COMPARISON: None FINDINGS: Peak systolic velocity in the right internal carotid artery is 78 cm/sec. The internal carotid to common carotid artery ratio is 1.4. There is no significant carotid artery stenosis and mild plaque formation. The right vertebral artery is normal in direction. Peak systolic velocity in the left internal carotid artery is 69 cm/sec. The internal carotid to common carotid artery ratio is 0.95. There is no significant carotid artery stenosis and mild to moderate plaque formation. The left vertebral artery is normal in direction. IMPRESSION: No ultrasound evidence of hemodynamically significant carotid artery stenosis. Normal peak systolic velocities and normal internal to common carotid artery ratios bilaterally. Reviewed, Interpreted and Dictated by Nessa Darnell MD Transcribed by Augusta Dowell Authenticated and [facility]
== END 2024-09-08 23:59 | disposition home or self-care (01) ==
LOC: RT 09:03
PROVIDERS: PCP Internal Medicine; Visit Provider Internal Medicine
DX: I65.29 Occlusion and stenosis of unspecified carotid artery (principal); Z82.49 Family history of ischemic heart disease and other diseases of the circulatory system; E78.5 Hyperlipidemia, unspecified; Z87.891 Personal history of nicotine dependence
CPT/HCPCS: 93880

== ENCOUNTER 2024-11-10 10:55 | Outpatient (CLI) | payer MEDICARE, SELFPAY ==
[2024-11-10 15:25] LABS: Human Rhinovirus Not Detected (NotDetected); Influenza A, PCR Not Detected (NotDetected); Influenza B, PCR Not Detected (NotDetected); Respiratory Syncytial Virus Not Detected (NotDetected)
[2024-11-10 16:59] LABS: Coronavirus 19, PCR Detected (NotDetected)
--- OUTSIDE RECORDS SUMMARY | 2024-11-11 11:14 | XMS_ITS | Clinical Summary ---
Author Organization Healthcare Address [address] [place] [address] Care Team Providers Care Store Planner Name Role Phone Nilton Lanza MD Primary Care Provider [phone] Family History Medical History Relation Name Comments Coronary artery disease Other 1 Hypertension Other 2 Relation Name Status Comments Other 1 Other 2 Social History Tobacco Use Types Packs/Day Years Used Date Smoking Tobacco: Former Alcohol Use Standard Drinks/Week Comments Yes 0 (1 standard drink = 0.6 oz pure alcohol) Alcoholic Drinks/day: Social alcohol use Comments Unknown Sex and Gender Information Value Date Recorded Sex Assigned at Not on file Legal Sex Female 6:05 PM EDT Gender Identity Not on file Sexual Orientation Not on file Last Filed Vital Signs Vital Sign Reading Time Taken Comments Blood Pressure - - Pulse - - Temperature - - Respiratory Rate - - Oxygen Saturation - - Inhaled Oxygen Concentration - - Weight 58.5 kg (128 lb 15.9 oz) 12/16/2016 9:07 AM EDT Height 165.1 cm (5' 5 ) 12/16/2016 9:07 AM EDT Body Mass Index 21.47 12/16/2016 9:07 AM EDT Plan of Treatment Health Maintenance Due Date Last Done Comments [facility]-Bone Density Scan 1950 [facility]-Depression Screening 1950 [facility]-/Child/Adol SDOH Screenings 1950 [facility]- SDOH Screenings 1966 [facility]-Adult SDOH Screenings 1966 [facility]-DTaP,Tdap,and Td Vaccines (1 - Tdap) 1967 [facility]Y-Zoster Vaccines (1 of 2) 1998 [facility]Y-Pneumococcal Vaccine: 50+ Years (2 of 2 - PPSV23) 04/14/2018 04/14/2017 UKY-RSV Vaccine: 60+ Years or (1 - 1-dose 75+ series) 2023 [id number] Vaccine ( season) 2024 03/13/2023, 02/26/2022, 09/30/2021, Additional history exists [facility]-Influenza Vaccine (Season Ended) 2025 03/20/2023 HPV Vaccines Aged Out No longer eligi ble based on patient's age to complete this topic [facility]Y-HIB Vaccines Aged Out No longer e ligible based on patient's age to complete this topic UKY-Hepatitis A Vaccines Aged Out No longer eligible based on patient's age to complete this topic [facility]Y-IPV Vaccines Aged Out No longer e ligible based on patient's age to complete this topic [facility]Y-Rotavirus Vaccines Aged Out No lo nger eligible based on patient's age to complete this topic Care Teams Store Planner Relationship Specialty Start Date End Date Nilton Lanza MD [address] [place] [address] [address] [place] [address] PCP - General 09/28/20
== END 2024-11-10 23:59 | disposition home or self-care (01) ==
LOC: LAB.DROPOF 11-11 11:09
PROVIDERS: PCP Nurse Practitioner Family; Visit Provider Nurse Practitioner Family
DX: J02.9 Acute pharyngitis, unspecified (principal); G44.309 Post-traumatic headache, unspecified, not intractable; S09.90XS Unspecified injury of head, sequela; R50.9 Fever, unspecified; R52 Pain, unspecified
CPT/HCPCS: 87070; 87077; 87631

== ENCOUNTER 2025-03-09 11:54 | Outpatient (CLI) | payer MEDICARE, SELFPAY ==
--- OUTSIDE RECORDS SUMMARY | 2025-03-10 10:59 | XMS_ITS | Clinical Summary ---
Author Organization [facility] Address [address] [place] [address] Care Team Providers Care Window Shade Cloth Sewer Name Role Phone Nilton Lanza MD Primary Care Provider [phone] Allergies No known active allergies Medications lisinopril (PRINIVIL,ZESTRI L) 10 MG tablet Take 10 mg by mouth Daily. Active atorvastatin (LIPITOR) 40 MG tablet Take 40 mg by mouth Daily. Active vitamin D3 125 MCG (5000 UT) capsule capsule Take 5,000 Units by mouth Daily. Active aspirin 81 MG chewable tablet Chew 81 mg Daily. Active magnesium oxide (MAGOX) 400 (241.3 Mg) MG tablet tablet Take 400 mg by mouth Daily. Active levothyroxine (SYNTHROID, LEVOTHROID) 50 MCG tablet Take 1 tablet by mouth Daily. 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 No goiter on exam. We discussed the diagnosis. Hypothyroidism (acquired) 05/28/2021 Assessment & Plan (05/28/2021 1:22 PM EST): She has treated hypothyroidism. Last TSH was okay. Continue T4 tx. Check TFTs today. Family History Medical History Relation Name Comments Heart disease Brother x 2 Heart attack Father Heart attack Mother Hypertension Mother Thyroid disease Mother Goiter Sister 1 Destiny Heart disease Sister 1 Destiny Heart disease Sister 2 x 3 Relation Name Status Comments Brother x 2 Alive Father Mother Sister 1 Destiny Sister 2 x 3 Alive Social History Tobacco Use Types Packs/Day Years Used Date Smoking Tobacco: Former Smokeless Tobacco: Never Comments:Quit date 9 years a go Alcohol Use Standard Drinks/Week Comments Yes 0 (1 standard drink = 0.6 oz pur e alcohol) social Abuse Screen Answer Date Recorded Unsafe at Home or Work/School Not on file Feels Threatened by Someone? Not on file Does Anyone Keep You from Co ntacting Others or Doint Things Outside the Home? Not on file 02/27/2023 Physical Sign of Abuse Present Not on file 1 Housing Stability Answer Date Recorded Current Living Arrangements Not on file 02/15 Potentially Unsafe Housing Conditions Not on jennifer e 02/27/2023 Family and Community Support Answer Dennys e Recorded Help with Day-to-Day Activities Not on file 02/27/2023 Lonely or Isolated Not on file 02/27/2023 Employment Answer Date Recorded Do you want help finding or keeping work or a hannah b? Not on file 02/27/2023 Disabilities Answer Date Recorded Concentrating, Remembering, or Making Decisions Difficulty Not on file 02/27/2023 Doing Errands Independently Difficulty Not on fi le 02/27/2023 Education Answer Date Recorded Help with school or training? Not on file Preferred Language Not on file 02/27/2023 Comments Unknown Sex and Gender Information Value Date Recorded Sex Assigned at Not on file Legal Sex Female 12:18 PM EDT Gender Identity Not on file Sexual Orientation Not on file Last Filed Vital Signs Vital Sign Reading Time Taken Comments Blood Pressure 120/60 05/28/2021 1:01 PM EST Pulse 59 05/28/2021 1:01 PM EST Temperature - - Respiratory Rate - - Oxygen Saturation 95% 05/28/2021 1:01 PM EST Inhaled Oxygen Concentration - - Weight 59.4 kg (131 lb) 05/28/2021 1:01 PM EST Height 167.6 cm (5' 6 ) 05/28/2021 1:01 PM EST Body Mass Index 21.14 05/28/2021 1:01 PM EST Plan of Treatment Health Maintenance Due Date Last Done Comments DXA SCAN 1950 TDAP/TD VACCINES (1 - Tdap) 1967 ZOSTER VACCINE (1 of 2) 1998 Pneumococcal Vaccine 50+ (2 of 2 - PCV20 or PCV21) 04/14/2017 ANNUAL PHYSICAL 05/28/2021 HEPATITIS C SCREENING 05/28/2021 RSV Vaccine - Adults (1 - 1-dose 75+ series) INFLUENZA VACCINE 12/16/2024 COVID-19 Vaccine ( - 2023- season) 2025 Insurance MEDICARE A & B Member Subscriber Plan / Payer (Ef fective 2013-Present) Name:Claribel Centeno Member ID:[id number] Relation to Subscriber:Self Name:Claribel Centeno Subscriber ID:[id number] Payer ID:[id number] Group ID:Not on file Type:Not on file Address: [address] [employer] Care Teams Window Shade Cloth Sewer Relationship Specialty Start Date End Date Nilton Lanza MD [address] [facility] [address] [place] [address] PCP - General Internal Medicine 03/08/21
--- OUTSIDE RECORDS SUMMARY | 2025-03-10 10:59 | XMS_ITS | Clinical Summary ---
Author Organization Healthcare Address [address] [place] [address] Care Team Providers Care Printing Table Worker Name Role Phone Nilton Lanza MD Primary Care Provider Family History Medical History Relation Name Comments [...] [facility]-Bone Density Scan 1948 [facility]-Depression Screening 1948 [facility]-Infant/Child/Adol SDOH Screenings 1948 [facility]- SDOH Screenings 1966 [facility]-Adult SDOH Screenings 1966 [facility]-DTaP,Tdap,and Td Vaccines (1 - Tdap) 1967 [facility]Y-Zoster Vaccines (1 of 2) 1998 [facility]-Pneumococcal Vaccine: 50+ Years (2 of 2 - PCV20 or PCV21) 04/14/2018 04/14/2017 [facility]-RSV Vaccine: 60+ Years or (1 - 1-dose 75+ series) 2023 [id number] Vaccine (2024- season) 2025 03/13/2023, 02/26/2022, 09/30/2021, Additional history exists [facility]-Influenza Vaccine (#1) 2025 03/20/2023 HPV Vaccines Aged Out No [...] age to complete this topic Care Teams Printing Table Worker Relationship Specialty Start Date End Date Nilton Lanza MD [address] [place] [address] [address] [place] [address] PCP - General 09/28/20
== END 2025-03-09 23:59 | disposition home or self-care (01) ==
LOC: LAB.DROPOF 03-10 10:50
PROVIDERS: PCP Internal Medicine; Visit Provider Internal Medicine
DX: R19.8 Other specified symptoms and signs involving the digestive system and abdomen (principal)
CPT/HCPCS: 86364

== ENCOUNTER 2025-04-04 16:07 | Outpatient (CLI) | payer MEDICARE, SELFPAY ==
--- NOTE | 2025-04-04 16:09 | XR_ITS ---
FINAL REPORT CLINICAL HISTORY: Left hip pain FINDINGS: LEFT HIP 3 views of the left hip are obtained. There is no acute fracture or dislocation. Visualized joint spaces are normally aligned. There is no acute soft tissue abnormality. IMPRESSION: No acute bony abnormality. Reviewed, Interpreted and Dictated by Familia Soliz MD Transcribed by Brittany Elkins Authenticated and [facility]
== END 2025-04-04 23:59 | disposition home or self-care (01) ==
LOC: RAD 16:08
PROVIDERS: PCP Internal Medicine; Visit Provider Internal Medicine
DX: M25.552 Pain in left hip (principal)
CPT/HCPCS: 73502